=== PATIENT | male | born 1995 | race Asian ===

== ENCOUNTER 2022-08-08 10:56 | Outpatient (CLI) | payer BC ==
[~2022-08-08 10:56] MED LIST: Iopamidol 370 76% 100 ML VIAL ONE
== END 2022-08-08 10:57 | disposition home or self-care (01) ==
LOC: BICCT 10:56
PROVIDERS: ATTEND Dentist Oral and Maxillofacial Surgery
DX: L03.211 Cellulitis of face (principal); R59.0 Localized enlarged lymph nodes; R60.0 Localized edema
CPT/HCPCS: 70487; Q9967